=== PATIENT | female | born 1985 | race Caucasian/White ===

== ENCOUNTER 2020-07-07 00:56 | Emergency (ER) | payer BC ==
[~2020-07-07] VITALS: Ht 165.1 cm; Wt 116.4 kg
[2020-07-07 02:28] LABS: BASO # 0.1 (0.0-0.2); BASO % 0.7 % (0.0-2.0); EOS # 0.5 (0.0-0.7); EOS % 5.4 % (0-4.0); GRAN # 4.4 (1.4-6.5); GRAN % 51.2 % (42.2-75.2); HEMATOCRIT 39.2 % (37.0-47.0); LYMPH # 2.7 (1.2-3.4); LYMPH % 30.9 % (20.0-51.0); MEAN CELL VOLUME 85 fl (80.0-100.0); MEAN CORPUSCULAR HEMOGLOBIN 30 pg (27.0-31.0); MEAN CORPUSCULAR HGB CONC 36 g/dl (33.0-37.0); MEAN PLATELET VOLUME 10.3 fl (7.4-10.4); MONO % 11.6 % (1.7-9.3); PLATELET COUNT 244 K/mm3 (130-400); RED BLOOD COUNT 4.61 M/mm3 (4.10-5.30)
[2020-07-07 02:39] LABS: ALBUMIN 4.2 gm/dL (3.5-5.0); BILIRUBIN,TOTAL 0.7 mg/dL (0.0-1.0); CALCIUM 9.2 mg/dL (8.4-10.2); CREATININE, serum 0.72 (0.52-1.25); POTASSIUM 3.5 mmol/L (3.4-5.0); TOTAL PROTEIN 7.4 gm/dL (6.4-8.2)
[2020-07-07 03:21] LABS: MUCOUS Present /lpf; PH 6 (5-8); URINE APPEARANCE Hazy; URINE BACTERIA None Seen /hpf; URINE BILIRUBIN Negative (NEGATIVE); URINE BLOOD 3+ (NEGATIVE); URINE COLOR Yellow; URINE GLUCOSE Negative (NEGATIVE); URINE KETONE Trace (NEGATIVE); URINE LEUKOCYTE ESTERASE 1+ (NEGATIVE); URINE NITRATE Negative (NEGATIVE); URINE PROTEIN(semi-quant) Negative (NEGATIVE); URINE RBC 0-2 /hpf; URINE UROBILINOGEN Negative (NEGATIVE)
[2020-07-07 03:34] LABS: COLLECTION METHOD CLEAN CATCH
[2020-07-07 06:04] VITALS: BP 136/90; PULSE 77; TEMP 98.2
== END 2020-07-07 06:05 | disposition home or self-care (01) ==
LOC: COL.ER 00:56
PROVIDERS: Emergency Medicine
DX: R10.32 Left lower quadrant pain (principal)
CPT/HCPCS: J1885; J2270; J2405; J7030; Q9967

== ENCOUNTER → 2020-07-27 | Outpatient (CLI) | payer BC | LOC: COL.RAD 07:09 | DX: K82.8 Other specified diseases of gallbladder (principal); R06.00 Dyspnea, unspecified | CPT/HCPCS: A9537 ==